=== PATIENT | female | born 1935 | race Caucasian/White ===

== ENCOUNTER 2021-07-28 08:41 | Emergency (ER) | payer MEDICARE ==
--- NOTE | 2021-07-28 09:16 | ERPHSYRPT ---
- History of Present Illness Time Seen by Provider: 07/28/21 09:14 Source: patient Exam Limitations: no limitations Patient Subjective Stated Complaint: Pt states "I was at work yesterday and I tripped over a box and fell and both my arms hurt really bad." Triage Nursing Assessment: Pt presented alert and oriented X 3, skin pwd Pt ambultes with an upright steady gait, able to speak in clear full sentences. Pt has swelling and bruising noted to posterior right humerus as well as tenderness, and tenderness to left posterior humerus. Physician History: 86 years old female with history of hypertension presented to the ER with chief complaint of bilateral shoulder and arms pain after she tripped on a piece of box yesterday at work and fell forward. She tried to stop her self with outstretched hands and bailee her both shoulders and arm. She did not hit her head. No loss of consciousness. Since then she is having pain both arms more in the right with bruising and swelling. Pain is more with palpation and mo vements at shoulder and better with being still. No numbness tingling or weakness of hands/forearms. No injury anywhere else. Occurred: yesterday Method of Injury: fell Quality: sharpness Severity of Pain-Max: moderate Severity of Pain-Current: moderate Extremities Pain Location: shoulder: bilateral, arm: bilateral Modifying Factors: Improves With: rest. Worsens With: movement Associated Symptoms: none Allergies/Adverse Reactions: No Known Drug Allergies Allergy (Verified 07/28/21 08:54) Home Medications: Lisinopril 20 mg [Zestril 20 MG] 20 mg PO DAILY 07/28/21 [History] Verapamil HCl [Verapamil ER] 240 mg PO DAILY 07/28/21 [History] Hx Tetanus, Diphtheria Vaccination/Date Given: No Hx Influenza Vaccination/Date Given: No Hx Pneumococcal Vaccination/Date Given: No Immunizations Up to Date: Yes Travel Risk - International Travel Have you traveled outside of the country in past 3 weeks: No - Coronavirus Screening Are you exhibiting any of the following symptoms?: No Close contact with a COVID-19 positive Pt in past 14-21 Days: No - Vaccine Status Have you recieved a Covid-19 vaccination: Yes Marketing Sales Manager: [employer] - Vaccination Dates Date of 2cond Vaccination (if applicable): 09/2020 Comment: booster as well - Review of Systems Constitutional: No Symptoms Eyes: No Symptoms Ears, Nose, & Throat: No Symptoms Respiratory: No Symptoms Cardiac: No Symptoms Abdominal/Gastrointestinal: No Symptoms Genitourinary Symptoms: No Symptoms Musculoskeletal: Fall, Injury, Joint Pain Skin: No Symptoms Neurological: No Symptoms Psychological: No Symptoms Endocrine: No Symptoms Hematologic/Lymphatic: No Symptoms Immunological/Allergic: No Symptoms - Past Medical History Pertinent Past Medical History: Yes Cardiac History: Hypertension - Past Surgical History Past Surgical History: No - Social History Smoking Status: Current every day smoker How long have you smoked: years Exposure to second hand smoke: Yes Drug Use: none Patient Lives Alone: No - Female History Hx Now: No - Nursing Vital Signs Nursing Vital Signs: Initial Vital Signs Temperature 97.6 F 07/28/21 08:48 Pulse Rate 106 H 07/28/21 08:48 Respiratory Rate 20 07/28/21 08:48 Blood Pressure 195/113 07/28/21 08:48 O2 Sat by Pulse Oximetry 96 07/28/21 08:48 Pain Scale Pain Intensity 6 - Physical Exam General Appearance: no apparent distress, alert Eyes, Ears, Nose, Throat Exam: normal ENT inspection Neck Exam: normal inspection, non-tender, supple, full range of motion Cardiovascular/Respiratory Exam: chest non-tender, normal breath sounds, regular rate/rhythm Abdominal Exam: non-tender, soft Back Exam: normal inspection, normal range of motion Shoulder Exam: normal inspection, non-tender, no evidence of injury, normal ROM Elbow/Forearm Exam: swelling (Right upper arm with bruising. Tenderness to palpation. No elbow tenderness/swelling/intact range of motion.) Hand Exam: normal inspection, non-tender, no evidence of injury, normal ROM Neuro/Tendon Exam: normal sensation, normal motor functions Mental Status Exam: alert, oriented x 3, cooperative Skin Exam: normal color SpO2 Interpretation: normal SpO2: 96 O2 Delivery: Room Air Ordered Tests: Active Orders 24 hr Category Date Time Status HUMERUS Stat Exams 07/28/21 Ordered HUMERUS Stat Exams 07/28/21 08:58 Ordered SHOULDER Stat Exams 07/28/21 Ordered SHOULDER Stat Exams 07/28/21 Ordered Medication Summary Discontinued Medications Generic Name Dose Route Start Last Admin Trade Name Freq PRN Reason Stop Dose Admin Oxycodone/Acetaminophen 1 tab 07/28/21 09:23 07/28/21 09:31 Oxycodone Hcl/Apap 5 Mg/325 Mg Tablet PO 07/28/21 09:24 1 tab STAT ONE Administration Oxycodone/Acetaminophen Confirm 07/28/21 09:30 Oxycodone Hcl/Apap 5 Mg/325 Mg Tablet Administered 07/28/21 09:31 Dose 1 tab .ROUTE .STK-MED ONE - Progress Progress: improved, pain not gone completely, re-examined Progress Note: 07/28/21 10:49 fx right humeral head/neck communited, sling applied , intact distal neurovascular, outpatient ortho follow up Counseled pt/family regarding: diagnosis, need for follow-up, rad results - Departure Departure Disposition: Home Clinical Impression: Humerus surgical neck fracture Qualifiers: Encounter type: initial encounter Fracture type: closed Fracture morphology: unspecified fracture morphology Fracture alignment: displaced Laterality: right Qualified Code(s): S42.211A - Unspecified displaced fracture of surgical neck of right humerus, initial encounter for closed fracture Fall Qualifiers: Encounter type: initial encounter Qualified Code(s): W19.XXXA - Unspecified fall, initial encounter Condition: Stable Critical Care Time: No Referrals: Elisha Sharma NP [Primary Care Provider] - Follow up/PCP as directed KANWAL MEADOWS MD [NON-STAFF PHY W/O PRIVILEGES] - Follow up/PCP as directed (in 2 days for re evaluation) Instructions: Preventing Falls, Shoulder Fracture (DC) Additional Instructions: follow up with orthopedic surgery for re evaluation in 2 days , take pain meds as needed. Prescriptions: Hydrocodone/Acetaminophen [Hydrocodone-Acetamin 5-325 mg] 1 tab PO Q6HPRN PRN 3 Days #12 tablet MDD 4 PRN Reason: Pain
[2021-07-28] MEDS ORDERED: PERCOCET TABLET 5/325MG PO ONE (09:23)
[2021-07-28] MEDS ORDERED: PERCOCET TABLET 5/325MG ONE (09:30)
[2021-07-28 11:06] VITALS: BP 138/73; PULSE 84; O2SAT 95
--- NOTE | 2021-07-28 19:13 | XRAY ---
Indication: Pain following fall. Comparison: None 3 view right shoulder demonstrates impacted comminuted humeral head/neck fracture. Elsewhere osteopenia and mild AC degenerative arthropathy. No other bony, articular, or soft tissue abnormalities.
--- NOTE | 2021-07-28 19:13 | XRAY ---
Indication: Pain following fall. Comparison: None 2 view right humerus demonstrates impacted comminuted humeral head/neck fracture. Elsewhere osteopenia and mild AC degenerative arthropathy. No other bony, articular, or soft tissue abnormalities.
--- NOTE | 2021-07-28 19:16 | XRAY ---
Indication: Pain following fall. Comparison: None 2 view left humerus osteopenia and mild AC degenerative arthropathy. No other bony, articular, or soft tissue abnormalities.
--- NOTE | 2021-07-28 19:24 | XRAY ---
Indication: Pain following fall. Comparison: None 3 view left shoulder demonstrates osteopenia, mild AC degenerative arthropathy, and mild degenerative changes of the visualized spine. No other bony, articular, or soft tissue abnormalities.
== END 2021-07-28 11:12 | disposition home or self-care (01) ==
LOC: ED 08:41
DX: S42.211A Unspecified displaced fracture of surgical neck of right humerus, initial encounter for closed fracture (principal); W01.0XXA Fall on same level from slipping, tripping and stumbling without subsequent striking against object, initial encounter; Y99.0 Civilian activity done for income or pay; I10 Essential (primary) hypertension; Z72.0 Tobacco use; Z79.891 Long term (current) use of opiate analgesic
CPT/HCPCS: 73030; 73060; 99283; A9270-GY